=== PATIENT | male | born 1980 | race Caucasian/White ===

== ENCOUNTER 2018-02-21 10:43 | Emergency (ER) | payer OTHER ==
[~2018-02-21] VITALS: Ht 177.8 cm; Wt 136.1 kg
[~2018-02-21 10:43] MED LIST: IBUPROFEN 800800 M1 PO
[2018-02-21] MEDS ORDERED: TYLENOL325 MG PO (11:00)
[2018-02-21] MEDS ORDERED: ADDERALL 20 MG20 MG PO (11:00)
[2018-02-21] MEDS ORDERED: ADDERALL 10 MG10 MG PO (11:01)
[2018-02-21 11:17] LABS: ABSOLUTE BASOPHILS 0.1 thou/uL (0.0-0.2); ABSOLUTE EOSINOPHILS 0.3 thou/uL (0.0-0.7); ABSOLUTE LYMPHOCYTES 1.5 thou/uL (0.8-5.3); ABSOLUTE MONOCYTES 0.7 thou/uL (0.0-1.2); ABSOLUTE NEUTROPHILS 2.5 thou/uL (1.6-8.1); BASOPHILS 1.2 %; EOSINOPHILS 6.5 %; HEMATOCRIT 44.8 % (42.0-52.0); HEMOGLOBIN 15.3 gm/dL (14.0-18.0); LYMPHOCYTES 29.5 %; MCH 30.5 pg (26.0-34.0); MCHC 34.2 g/dL (28.0-37.0); MONOCYTES 13.4 %; MPV 8.3 fl. (7.2-11.1); NUCLEATED RBCS 0 /100WBC; PLATELET COUNT* 224 thou/uL (150-400); POLYS 49.4 %; RBC 5.03 mil/uL (4.50-6.00); RDW-CV 13.8 % (10.5-14.5)
[2018-02-21 11:31] LABS: CALCIUM 8.9 mg/dL (8.5-10.1); CREATININE 0.9 mg/dL (0.6-1.3); POTASSIUM 4.2 mmol/L (3.5-5.1)
[2018-02-21 11:36] LABS: ALBUMIN 3.5 g/dL (3.4-5.0); TOTAL BILIRUBIN 0.3 mg/dL (<0.1-1.0); TOTAL PROTEIN 7.3 g/dL (6.4-8.2)
[2018-02-21] MEDS ORDERED: FLEXERIL PO (12:53)
[2018-02-21 13:02] VITALS: BP 133/88
== END 2018-02-21 13:11 | disposition home or self-care (01) ==
LOC: M.ERS 10:43
PROVIDERS: Nurse Practitioner Psychiatric/Mental Health
DX: S39.011A Strain of muscle, fascia and tendon of abdomen, initial encounter (principal); F17.210 Nicotine dependence, cigarettes, uncomplicated; F90.9 Attention-deficit hyperactivity disorder, unspecified type; Z88.7 Allergy status to serum and vaccine; X58.XXXA Exposure to other specified factors, initial encounter; Y93.89 Activity, other specified; Y92.89 Other specified places as the place of occurrence of the external cause; Y99.8 Other external cause status